=== PATIENT | female | born 2000 | race Caucasian/White ===

== ENCOUNTER 2020-10-22 10:43 | Emergency (ER) | payer BC ==
[2020-10-22 11:10] VITALS: BMI 22.6
[2020-10-22] MEDS ORDERED: SODIUM CHLORIDE 1,000 ML IV STA (11:17)
[2020-10-22] MEDS ORDERED: MAG HYDROX/AL HYDROX/SIMETH -MYLANTA- ORAL SUSPENSION PO ONE (11:18)
[2020-10-22] MEDS ORDERED: FAMOTIDINE 20 MG/50 ML IVPB 20 MG/50 ML MG IVPB ONE ×2 (11:18→11:31)
[2020-10-22] MEDS ORDERED: ONDANSETRON 4 MG/2 ML VIAL IVPUSH ONE (11:18)
[2020-10-22] MEDS ORDERED: MAG HYDROX/AL HYDROX/SIMETH 30 ML UNIT-DOSE CUP ONE (11:30)
[2020-10-22] MEDS ORDERED: ONDANSETRON 4 MG/2 ML VIAL ONE (11:31)
[2020-10-22 12:13] LABS: BASO % 0.1 % (0-2.0); HEMOGLOBIN 13.5 GM/dL (10.7-15.3); LYMPH % 7.7 % (8-40); MCH 30.4 pg (25.7-33.7); MCHC 34.5 g/dl (32.0-36.0); MEAN PLT VOLUME 9.5 fl (7.5-11.1); MONO % 3.3 % (3.8-10.2); NEUT % 88.9 % (42.8-82.8); PLATELET COUNT 230 K/MM3 (134-434); RBC 4.43 M/mm3 (3.60-5.2); RDW 12.3 % (11.6-15.6)
[2020-10-22 12:55] LABS: POTASSIUM 4.5 mmol/L (3.5-5.1)
[2020-10-22 12:57] LABS: BLOOD UREA NITROGEN 9.5 mg/dL (7-18); CALCIUM 9.5 mg/dL (8.5-10.1)
[2020-10-22 12:58] LABS: ALBUMIN 4.2 g/dl (3.4-5.0)
[2020-10-22 13:01] LABS: CREATININE 0.7 mg/dL (0.55-1.3)
[2020-10-22 13:02] LABS: BILIRUBIN,TOTAL 0.4 mg/dL (0.2-1); TOT PROT 7.6 g/dl (6.4-8.2)
[2020-10-22 13:23] LABS: PH,URINE 5.5 (5.0-8.0); URINE APPEARANCE CLEAR; URINE BILIRUBIN NEGATIVE (NEGATIVE); URINE COLOR YELLOW; URINE GLUCOSE (UA) NEGATIVE (NEGATIVE); URINE KETONE NEGATIVE (NEGATIVE); URINE LEUK ESTERASE NEGATIVE (NEGATIVE); URINE NITRITE NEGATIVE (NEGATIVE); URINE PROTEIN NEGATIVE (NEGATIVE); URINE UROBILINOGEN 0.2 mg/dL (0.2-1.0)
[2020-10-22 13:26] LABS: HCG,QUALITATIVE URINE Negative
[2020-10-22 13:41] VITALS: BP 103/67; PULSE 79; TEMP 98
== END 2020-10-22 13:59 | disposition home or self-care (01) ==
LOC: JER 10:43
PROC: 3E033GC Introduction of Other Therapeutic Substance into Peripheral Vein, Percutaneous Approach (ICD-10-PCS; principal; 2020-10-22)
PROC: 3E033GC Introduction of Other Therapeutic Substance into Peripheral Vein, Percutaneous Approach (ICD-10-PCS; 2020-10-22)
PROC: 3E0337Z Introduction of Electrolytic and Water Balance Substance into Peripheral Vein, Percutaneous Approach (ICD-10-PCS; 2020-10-22)
DX: R10.13 Epigastric pain (principal)
CPT/HCPCS: 36415; 80053; 81003; 83690; 84703; 85025; 87086; 99284-25

== ENCOUNTER 2020-11-19 11:04 | Emergency (ER) | payer BC ==
[2020-11-20 08:06] LABS: SARS-CoV-2 NAA Not Detected (Not Detected)
== END 2020-11-19 11:42 | disposition home or self-care (01) ==
LOC: JVIRT 11:04
DX: Z20.822 Contact with and (suspected) exposure to COVID-19 (principal)
CPT/HCPCS: C9803; G2251-GT; U0003; U0005